=== PATIENT | female | born 1970 | race American Indian/Alaskan Native ===

== ENCOUNTER 2020-07-04 04:27 | Emergency (ER) | payer SELFPAY ==
--- NOTE | 2020-07-04 07:50 | Emergency Department Report ---
ED General Adult HPI - General Chief complaint: Skin/Abscess/Foreign Body Stated complaint: HEAD PAIN Time Seen by Provider: 07/04/20 07:35 Source: patient Mode of arrival: Ambulatory Limitations: No Limitations - History of Present Illness Initial comments: This very pleasant 50-year-old female presents the emergency department chief complaint of "I have a sinus infection." She reports she is been having left- sided facial pain, pain in the left lower jaw over the past month. She denies any injuries. She denies any associated fever, chills, night sweats, headache, dizziness, blurry vision, nausea,, diarrhea, chest pain, shortness of breath. She denies any known past medical history, current medication use or known allergies to medications. - Related Data Previous Rx's Medication Instructions Recorded Last Taken Type Amoxicillin/Potassium Clav 1 each PO BID #20 tablet 07/04/20 Unknown Rx [Augmentin 875-125 Tablet] Naproxen 500 mg PO BID #20 tablet 07/04/20 Unknown Rx ED Review of Systems ROS: Stated complaint: HEAD PAIN Other details as noted in HPI Comment: All other systems reviewed and negative Constitutional: denies: chills, fever Eyes: denies: eye pain, eye discharge, vision change ENT: as per HPI, dental pain. denies: ear pain, throat pain Respiratory: denies: cough, shortness of breath, wheezing Cardiovascular: denies: chest pain, palpitations Endocrine: no symptoms reported Gastrointestinal: denies: abdominal pain, nausea, diarrhea Genitourinary: denies: urgency, dysuria, discharge Musculoskeletal: denies: back pain, joint swelling, arthralgia Skin: denies: rash, lesions Neurological: denies: headache, weakness, paresthesias Psychiatric: denies: anxiety, depression Hematological/Lymphatic: denies: easy bleeding, easy bruising ED Past Medical Hx - Past Medical History Previous Medical History?: No - Surgical History Past Surgical History?: No - Social History Smoking Status: Current Every Day Smoker Substance Use Type: Alcohol, Marijuana - Medications Home Medications: Home Medications Medication Instructions Recorded Confirmed Last Taken Type Amoxicillin/Potassium Clav 1 each PO BID #20 tablet 07/04/20 Unknown Rx [Augmentin 875-125 Tablet] Naproxen 500 mg PO BID #20 tablet 07/04/20 Unknown Rx ED Physical Exam - General Limitations: No Limitations General appearance: alert, in no apparent distress - Head Head exam: Present: atraumatic, normocephalic - Eye Eye exam: Present: normal appearance, PERRL, EOMI Pupils: Present: normal accommodation - ENT ENT exam: Present: normal exam, normal orophraynx, mucous membranes moist, TM's normal bilaterally, other (There are multiple dental caries with some mild soft tissue swelling to the left lower jaw, there is tenderness over the maxillary and frontal sinuses on the left. There is hyperemia to the nasal turbinates.) - Neck Neck exam: Present: normal inspection, full ROM. Absent: tenderness, meningismus - Respiratory Respiratory exam: Present: normal lung sounds bilaterally. Absent: respiratory distress, wheezes, rales, rhonchi, stridor, chest wall tenderness - Cardiovascular Cardiovascular Exam: Present: regular rate, normal rhythm, normal heart sounds. Absent: bradycardia, tachycardia, irregular rhythm, systolic murmur, diastolic murmur, rubs, gallop - GI/Abdominal GI/Abdominal exam: Present: soft, normal bowel sounds. Absent: distended, tenderness, guarding, rebound, rigid - Extremities Exam Extremities exam: Present: normal inspection, full ROM, normal capillary refill. Absent: tenderness, calf tenderness (Negative Homans' sign bilaterally) - Back Exam Back exam: Present: normal inspection, full ROM. Absent: tenderness, CVA tenderness (R), CVA tenderness (L) - Neurological Exam Neurological exam: Present: alert, oriented X3, CN II-XII intact, normal gait - Psychiatric Psychiatric exam: Present: normal affect, normal mood - Skin Skin exam: Present: warm, dry, intact, normal color. Absent: rash ED Medical Decision Making - Medical Decision Making Patient nontoxic in no acute distress. Vital signs are stable. Patient symptoms are consistent with a sinusitis however due to her symptoms being over a month I will treat with some antibiotics. She was also having some dental pain and some soft tissue swelling in her mouth which aspect could be an early dental infection. She understood she need to follow-up with a dentist and return to the emerge department any change or worsening symptoms. She instructed to do warm salt water rinses of her mouth, take anti-inflammatories for pain. She verbalized understand the diagnosis, treatment plan and follow-up instructions and all of her questions were answered. - Differential Diagnosis Sinusitis, dental infection, trigeminal neuralgia Critical care attestation.: If time is entered above; I have spent that time in minutes in the direct care of this critically ill patient, excluding procedure time. ED Disposition Clinical Impression: Dental infection Acute sinusitis Qualifiers: Sinusitis location: maxillary Recurrence: non-recurrent Qualified Code(s): J01.00 - Acute maxillary sinusitis, unspecified Disposition: TO HOME OR SELFCARE Is pt being admited?: No Condition: Stable Instructions: Preventive Dental Care, Adult Prescriptions: Amoxicillin/Potassium Clav [Augmentin 875-125 Tablet] 1 each PO BID #20 tablet Naproxen 500 mg PO BID #20 tablet Referrals: PRIMARY CARE, [Primary Care Provider] - 3-5 Days [facility] [Provider Group] - 3-5 Days Forms: Work/School Release Form(ED) Time of Disposition: 07:52
[2020-07-04 08:02] VITALS: BP 181/71
== END 2020-07-04 08:02 | disposition home or self-care (01) ==
LOC: ED 04:27
DX: K04.7 Periapical abscess without sinus (principal); J01.90 Acute sinusitis, unspecified; F17.200 Nicotine dependence, unspecified, uncomplicated; F12.10 Cannabis abuse, uncomplicated; Z79.899 Other long term (current) drug therapy
CPT/HCPCS: 99282